=== PATIENT | female | born 2000 | race Caucasian/White ===

== ENCOUNTER 2023-06-08 18:57 | Emergency (ER) | payer OTHER ==
[~2023-06-08] VITALS: Ht 177.8 cm; Wt 113.4 kg
[2023-06-08] MEDS ORDERED: Ketorolac Tromethamine 30mg Vial IM ONE (21:05)
== END 2023-06-08 21:37 | disposition home or self-care (01) ==
LOC: ER 18:57
DX: S20.211A Contusion of right front wall of thorax, initial encounter (principal); S80.01XA Contusion of right knee, initial encounter; V43.52XA Car driver injured in collision with other type car in traffic accident, initial encounter
CPT/HCPCS: 70450; 71046; 73562-RT; 96372; 99284-25; J1885